=== PATIENT | female | born 1985 | race Caucasian/White ===

== ENCOUNTER 2019-02-14 00:48 | Observation (INO) ==
[2019-02-14] MEDS: Ibuprofen 400 MG TABLET PO PRN ×2 (05:25→17:35)
[2019-02-14] MEDS ORDERED: niCARdipine 20 MG in 0.9 % Sodium Chloride 192 ML IVC SCH (05:30)
[2019-02-14] MEDS ORDERED: Naloxone 0.4 MG/ML INJ IVP PRN (10:37)
[2019-02-14] MEDS: NIFEdipine XL (24 HR) 60 MG TAB.ER.24 PO SCH (11:08)
[2019-02-15] MEDS ORDERED: Acetaminophen 325 MG TABLET PO ONE (00:21)
[2019-02-15] MEDS: NIFEdipine XL (24 HR) 60 MG TAB.ER.24 PO SCH (08:08)
[2019-02-15] MEDS ORDERED: Prenatal Vit/FA 1 EACH TABLET PO SCH (09:00)
[2019-02-15 10:08] VITALS: BP 124/88
== END 2019-02-15 10:31 | disposition home or self-care (01) ==
LOC: 2NNU
PROVIDERS: ADMIT Internal Medicine; ATTEND Internal Medicine